=== PATIENT | female | born 1985 | race African-American/Black ===

== ENCOUNTER 2018-07-07 09:19 | Emergency (ER) | payer OTHER ==
[~2018-07-07] VITALS: Ht 167.6 cm; Wt 86.6 kg
[2018-07-07 09:19] VITALS: BP 129/90
== END 2018-07-07 10:10 | disposition home or self-care (01) ==
LOC: ER 09:20
DX: J06.9 Acute upper respiratory infection, unspecified (principal); N76.0 Acute vaginitis; F17.200 Nicotine dependence, unspecified, uncomplicated; Z60.2 Problems related to living alone
CPT/HCPCS: 99283; A4606; Z7610